=== PATIENT | female | born 1970 | race Caucasian/White ===

== ENCOUNTER 2017-08-01 09:49 | Day surgery (SDC) | payer OTHER ==
[2017-08-01] MEDS: NS 1,000 ML IV (10:00)
[2017-08-01] MEDS ORDERED: fentaNYL 100 MCG/2 ML INJECTION (J3010) As Ordered (11:04)
[2017-08-01] MEDS ORDERED: PROPOFOL 200 MG/20 ML VIAL As Ordered (11:04)
[2017-08-01] MEDS ORDERED: LIDOCAINE 2% MDV 20 ML VIAL As Ordered (11:04)
== END 2017-08-01 12:05 | disposition home or self-care (01) ==
LOC: M OPP 09:49
DX: K30 Functional dyspepsia (principal); K22.8 Other specified diseases of esophagus; K29.70 Gastritis, unspecified, without bleeding; I10 Essential (primary) hypertension; K21.9 Gastro-esophageal reflux disease without esophagitis; Z79.899 Other long term (current) drug therapy; Z98.890 Other specified postprocedural states; Z92.21 Personal history of antineoplastic chemotherapy; Z88.1 Allergy status to other antibiotic agents; Z85.3 Personal history of malignant neoplasm of breast
CPT/HCPCS: 43239

== ENCOUNTER → 2019-11-12 | Outpatient (REF) | payer OTHER ==
[~2019-11-12] MED LIST: HYOS0.1248; TAMO20TA8; TRIA37.53; TUMS500C PO; VITA100067 PO
== END ==
LOC: M LAB REF 18:04
PROVIDERS: ATTEND Physician Assistant
DX: D48.9 Neoplasm of uncertain behavior, unspecified (principal); L73.9 Follicular disorder, unspecified; L72.0 Epidermal cyst

== ENCOUNTER → 2022-06-12 | Outpatient (REF) | payer OTHER ==
[~2022-06-12] MED LIST changes: -TRIA37.53; +TRIA37.577
== END ==
LOC: M LAB REF 17:07
PROVIDERS: ATTEND Nurse Practitioner Family
DX: Z01.419 Encounter for gynecological examination (general) (routine) without abnormal findings (principal); R87.618 Other abnormal cytological findings on specimens from cervix uteri
CPT/HCPCS: 87624; G0123